=== PATIENT | female | born 1990 | race African-American/Black ===

== ENCOUNTER 2022-11-11 17:28 | Emergency (ER) | payer OTHER ==
[2022-11-11 17:41] VITALS: BP 135/81; PULSE 97; RESP 18; TEMP 98; BMI 22.8
[2022-11-11] MEDS ORDERED: PENICILLIN G BENZATHINE 2,400,000 UNIT/4 ML PFS IM ONE (18:03)
[2022-11-11] MEDS ORDERED: PENICILLIN G BENZATHINE 2,400,000 UNIT/4 ML PFS ONE (18:16)
== END 2022-11-11 18:36 | disposition home or self-care (01) ==
LOC: JERFT 17:28
PROC: 3E023GC Introduction of Other Therapeutic Substance into Muscle, Percutaneous Approach (ICD-10-PCS; principal; 2022-11-11)
DX: A51.39 Other secondary syphilis of skin (principal)
CPT/HCPCS: 96372; 99284-25